=== PATIENT | female | born 1930 ===

== ENCOUNTER → 2017-09-11 | Outpatient (REF) | LOC: ZLAB.WCH 11:33 | DX: Z01.89 Encounter for other specified special examinations (principal) ==

== ENCOUNTER → 2017-11-24 | Outpatient (REF) | LOC: ZLAB.WCH 18:17 | DX: Z01.89 Encounter for other specified special examinations (principal) ==

== ENCOUNTER → 2018-05-10 | Outpatient (REF) | LOC: ZLAB.WCH 17:47 | DX: Z01.89 Encounter for other specified special examinations (principal) ==

== ENCOUNTER → 2018-09-21 | Outpatient (REF) | LOC: ZLAB.WCH 16:55 | DX: Z01.89 Encounter for other specified special examinations (principal) ==

== ENCOUNTER → 2018-10-28 | Outpatient (REF) | LOC: ZLAB.WCH 09:55 | DX: Z01.89 Encounter for other specified special examinations (principal) ==